=== PATIENT | female | born 1950 | race Two or more races ===

== ENCOUNTER → 2018-02-25 | Emergency (ER) | payer OTHER ==
[~2018-02-25] VITALS: Ht 132.1 cm; Wt 59.0 kg
[~2018-02-25] MED LIST: KETO10TA2 PO; LOSARTAN POTASS50 MG; TAMS0.4C PO
== END | disposition home or self-care (01) ==
LOC: ER 00:48
DX: R10.12 Left upper quadrant pain (principal)

== ENCOUNTER 2025-10-28 06:21 | Emergency (ER) | payer OTHER ==
[~2025-10-28] VITALS: Ht 152.4 cm; Wt 54.9 kg
[2025-10-28] MEDS ORDERED: KETOROLAC TROMETHAMINE 30 MG VIAL IU ONE (07:15)
[2025-10-28] MEDS ORDERED: 0.9 % SODIUM CHLORIDE 1,000 ML IV ONE (07:15)
[2025-10-28 07:37] LABS: BASO % 0.5 % (0.1-1.2); EOS # 0.08 (0.04-0.54); EOS % 1.1 % (0.7-7.0); LYMPH # 2.67 (1.18-3.74); LYMPH % 36.7 % (19.3-53.1); MEAN PLATELET VOLUME 9.90 fl (9.4-12.4); MONO # 0.58 (0.24-0.82); MONO % 8.0 % (4.7-12.5); NEUT # 3.90 (1.56-6.13); NEUT % 53.6 % (34.0-71.1); RED CELL DISTRIBUTION WIDTH 12.3 % (11.6-14.4)
[2025-10-28 08:09] LABS: ALT/SGPT 25 U/L (12-78); AST/SGOT 16 U/L (15-37); BILIRUBIN TOTAL 0.40 mg/dL (0.3-1.2); BILIRUBIN,CONJUGATED < 0.10 mg/dL (0.0-0.2); BUN CREA RATIO 22 (7.0-25.0); CREATININE SERUM 0.72 mg/dL (0.55-1.02); GFR 79.40; GLUCOSE FASTING 103 mg/dL (65-100); OSMOLALITY SERUM 283 MOSM/KG (275-295)
[2025-10-28 09:04] LABS: URINE APPEARANCE Clear; URINE BILIRRUBIN Negative (NEGATIVE); URINE COLOR Yellow; URINE GLUCOSE Negative (NEGATIVE); URINE KETONE Negative (NEGATIVE); URINE LEUKOCYTE Trace; URINE NITRATE Negative; URINE PROTEIN Negative (NEGATIVE); URINE UROBILINOGEN 0.2 E.U./dl
[2025-10-28 09:08] LABS: URINE BACTERIA 13.1 uL (0.0-1933); URINE EPITHELIAL CELLS 3.0 uL (0.0-38.8); URINE RBC 18.0 uL (0.0-20.8); URINE WBC 7.5 uL (0.0-23.2)
[2025-10-28 09:10] LABS: URINE CAST 0.14 uL (0.0-1.40)
[2025-10-28 09:11] LABS: URINE BLOOD TRACE
== END 2025-10-28 10:59 | disposition home or self-care (01) ==
LOC: ER 06:22
PROVIDERS: Emergency Medicine
DX: R10.31 Right lower quadrant pain (principal); R10.A1 Flank pain, right side; I10 Essential (primary) hypertension; Z87.448 Personal history of other diseases of urinary system; Z88.2 Allergy status to sulfonamides
CPT/HCPCS: 36415; 74177; 96365; 96366; 99284; J1885; J7030; Q9965